=== PATIENT | female | born 2000 | race Two or more races ===

== ENCOUNTER 2024-12-03 19:49 | Emergency (ER) | payer MEDICAID ==
[~2024-12-03] VITALS: Ht 157.5 cm; Wt 55.9 kg
[2024-12-03 19:50] VITALS: BP 128/87; PULSE 65; RESP 18; TEMP 98.9; O2SAT 97
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
[2024-12-03] MEDS ORDERED: IBUP1TAB5 PO (21:12)
[2024-12-03] MEDS ORDERED: SILV1CRE82 TOP (21:12)
[2024-12-03] MEDS: SILVER SULFADIAZINE 1 % TOPICAL CREAM 50GM TOP ONE (21:34)
== END 2024-12-03 21:40 | disposition home or self-care (01) ==
LOC: ER 19:49
DX: T23.101A Burn of first degree of right hand, unspecified site, initial encounter (principal); T31.0 Burns involving less than 10% of body surface; X08.8XXA Exposure to other specified smoke, fire and flames, initial encounter; Y93.89 Activity, other specified; Y92.89 Other specified places as the place of occurrence of the external cause; Y99.8 Other external cause status